=== PATIENT | female | born 2000 | race Caucasian/White ===

== ENCOUNTER 2020-11-05 02:54 | Emergency (ER) | payer OTHER ==
[~2020-11-05] VITALS: Ht 170.2 cm; Wt 79.5 kg
[2020-11-05] MEDS ORDERED: ALBU8.5H INH (03:05)
[2020-11-05] MEDS ORDERED: SERT50TA29 PO (03:05)
[2020-11-05] MEDS ORDERED: ALLE180T33 PO (03:05)
[2020-11-05] MEDS ORDERED: ACET500T15 PO (03:05)
[2020-11-05] MEDS ORDERED: MECL1TAB31 PO (03:06)
[2020-11-05 05:34] LABS: BASO % 0.5 % (0.0-1.0); EOS # 0.2 10^3/uL (0.0-0.5); EOS % 2.3 % (0.0-3.0); HEMOGLOBIN 12.3 g/dl (12.0-15.5); LYMPH # 2.7 10^3/uL (1.5-5.0); MEAN CORPUSCULAR HEMOGLOBIN 24.1 pg (27.0-33.0); MEAN CORPUSCULAR HGB CONC 30.8 g/dl (32.0-36.5); MEAN CORPUSCULAR VOLUME 78.4 fl (80.0-96.0); MONO # 0.6 10^3/uL (0.0-0.8); MONO % 6.4 % (2.0-8.0); NEUTROPHILS # 5.1 10^3/uL (1.5-8.5); NEUTROPHILS % 59.6 % (36.0-66.0); PLATELET COUNT, AUTOMATED 279 10^3/uL (150-450); WHITE BLOOD COUNT 8.6 10^3/uL (4.0-10.0)
[2020-11-05 06:03] LABS: ALBUMIN 4.3 GM/DL (3.2-5.2); ALT/SGPT 16 U/L (12-78); BILIRUBIN,DIRECT 0.1 MG/DL (0.0-0.2); BILIRUBIN,TOTAL 0.3 MG/DL (0.2-1.0); BLOOD UREA NITROGEN 11 MG/DL (7-18); CALCIUM LEVEL 8.9 MG/DL (8.5-10.1); CARBON DIOXIDE LEVEL 27 MEQ/L (21-32); CHLORIDE LEVEL 107 MEQ/L (98-107); CREATININE FOR GFR 0.81 MG/DL (0.55-1.30); GLOMERULAR FILTRATION RATE > 60.0 (>60); GLUCOSE, FASTING 93 MG/DL (70-100); LIPASE 122 U/L (73-393); SODIUM LEVEL 139 MEQ/L (136-145); TOTAL PROTEIN 7.9 GM/DL (6.4-8.2)
[2020-11-05] MEDS ORDERED: NS 1,000 ML IV ONE (06:15)
--- NOTE | 2020-11-05 07:29 | REPVR ---
PROCEDURE INFORMATION: Exam: US Abdomen, Limited; Right Upper Quadrant Exam date and time: 11/05/2020 6:57 AM Age: 20 years old Clinical indication: Abdominal pain; Epigastric; Additional info: Abdominal pain + gomez sign ruq pain TECHNIQUE: Imaging protocol: US abdomen. Real time ultrasound with image documentation. Limited exam focused on the right upper quadrant. COMPARISON: No relevant prior studies available. FINDINGS: Liver: Normal. No masses. Gallbladder: Normal. No gallstones. There is no gallbladder wall thickening. No sonographic Gomez's sign was elicited-however the patient was given pain meds prior to the exam. Common bile duct: The CBD is normal in caliber measuring 3-4 mm in diameter. Pancreas: The pancreatic head is unremarkable. The body and the tail of the pancreas are obscured by bowel gas limiting the sensitivity and specificity of this finding. Right kidney: The right kidney measures 10.4 x 4.5 x 3.6 cm. There is no right renal mass, stone, cyst or hydronephrosis. IMPRESSION: Normal right upper quadrant ultrasound. Electronically signed by: Johnny Zhou On 11/05/2020 07:29:20 AM
[2020-11-05] MEDS ORDERED: ISOVUE-370 76% 100ML VIAL As Ordered ONE (09:09)
--- NOTE | 2020-11-05 10:10 | REP ---
INDICATION: abdominal pain. COMPARISON: None. TECHNIQUE: Abdomen/pelvis CT with IV contrast, without bowel contrast FINDINGS: The visualized lung mauricio are unremarkable. The hepatic parenchyma, gallbladder, pancreas and the spleen are normal size and otherwise unremarkable. The adrenals and kidneys are unremarkable. The abdominal aorta is unremarkable. There is no periaortic adenopathy or mass. There is no bowel distention or obstruction. The mesentery is unremarkable. Pelvis: The uterus is unremarkable. There is an involuting follicle in the right adnexa measuring 19 mm. There is a small volume of free fluid in the right adnexa. There is a left adnexal follicle measuring 2.9 cm. No free fluid in the left adnexa. The uterus is tilted to the right but otherwise unremarkable. The pelvic bowel loops are unremarkable. The appendix and terminal ileum are unremarkable. The bladder is unremarkable. IMPRESSION: Involuting right adnexal follicle and small volume of free fluid in the right adnexa. 2.9 cm left adnexal follicle. Uterus tilted to the right. Otherwise, negative CT of the abdomen and pelvis. <Electronically signed by Brian Gonzalez > 11/05/20 1001
[2020-11-05 11:18] VITALS: BP 112/59
== END 2020-11-05 11:21 | disposition home or self-care (01) ==
LOC: M ED 02:54
DX: R10.10 Upper abdominal pain, unspecified (principal); N83.00 Follicular cyst of ovary, unspecified side; N85.4 Malposition of uterus; R11.0 Nausea; R42 Dizziness and giddiness; F33.9 Major depressive disorder, recurrent, unspecified; F41.9 Anxiety disorder, unspecified; G43.909 Migraine, unspecified, not intractable, without status migrainosus; Z79.899 Other long term (current) drug therapy
CPT/HCPCS: 74177; 76705; 80048; 80076; 81001; 83690; 84702; 85025; 96360; 99284; Q9967